=== PATIENT | female | born 1995 | race Caucasian/White ===

== ENCOUNTER 2021-03-23 18:46 | Emergency (ER) | payer OTHER ==
[~2021-03-23] VITALS: Ht 157.5 cm; Wt 69.4 kg
== END 2021-03-23 21:14 | disposition left against medical advice (07) ==
LOC: EDH 18:46
DX: R21 Rash and other nonspecific skin eruption (principal); Z53.21 Procedure and treatment not carried out due to patient leaving prior to being seen by health care provider